=== PATIENT | female | born 1970 | race Caucasian/White ===

== ENCOUNTER 2021-01-25 18:41 | Emergency (ER) | payer BC ==
[2021-01-25 19:00] VITALS: BP 136/108
--- NOTE | 2021-01-25 19:23 | ED Physician Documentation ---
History of Present Illness - Stated complaint Stated Complaint: FALL, RIGHT FOOT INJURY - Chief complaint Chief Complaint: Trauma Ext - History obtained from History obtained from: Patient - Additonal information Additional information: Adal presents with right foot pain after getting out of an airplane and stumbling on her right foot. She states she is not able to bear any weight and there is diffuse pain throughout the entire foot but not the ankle. This happened several hours ago and there has been no improvement. She not had any swelling, no bruising, no erythema. She has not attempted any medication or other treatment at home. Review of Systems Ten Systems: 10 systems reviewed and negative Musculoskeletal: reports: Extremity pain, Pain with weight bearing. denies: Neck pain, Back pain, Joint pain, Extremity swelling, Joint swelling PD PAST MEDICAL HISTORY - Past Medical History Past Medical History: Yes Respiratory: Asthma Psych: Anxiety - Allergies Allergies/Adverse Reactions: Allergies Allergy/AdvReac Type Severity Reaction Status Date / Time escitalopram [From Lexapro] Allergy Nausea Verified 01/25/21 18:55 Iodinated Contrast Media Allergy Emesis Verified 01/25/21 18:55 PD ED PE NORMAL - Vitals Vital signs reviewed: Yes - General General: Alert and oriented X 3, No acute distress, Well developed/nourished - HEENT HEENT: Atraumatic, Moist mucous membranes - Cardiac Cardiac: RRR, No murmur - Respiratory Respiratory: No respiratory distress, Clear bilaterally - Abdomen Abdomen: Normal bowel sounds, Soft, Non tender, Non distended - Derm Derm: Normal color, Warm and dry, No rash - Extremities Extremities: No deformity, No edema, No calf tenderness / cord, Other (Is diffuse tenderness of the right foot primarily forefoot, base of fifth metatarsal and base of first metatarsal. There is no obvious deformity, no swelling, there is no pain of the malleoli and no swelling or instability of the ankle.). No: No tenderness to palpate, Normal ROM s pain - Neuro Neuro: Alert and oriented X 3, No motor deficit, No sensory deficit, Normal speech Eye Opening: Spontaneous Motor: Obeys Commands Verbal: Oriented GCS Score: 15 - Psych Psych: Normal mood, Normal affect Results - Vitals Vitals: Vital Signs - 24 hr 01/25/21 01/25/21 18:56 20:25 Temperature 36.6 C Heart Rate 89 89 Respiratory 18 18 Rate Blood Pressure 136/108 H 136/108 H O2 Saturation 98 98 Oxygen O2 Source Room air PD MEDICAL DECISION MAKING - ED course Complexity details: reviewed results, d/w patient ED course: 50 year-old female who presents with rt foot pain after injury. We obtained a x-ray which was reassuring without any acute fractures noted. On physical exam there is no obvious swelling, no erythema but she does have generalized tenderness. We placed her in a walking boot as she was unable to tolerate crutches. She was able to bear weight in this manner. Advised to keep elevated, utilize cool compress, ibu/tylenol. If no improvement in 1-2 weeks, pt to see PCP for possible additional imaging. Departure - Departure Disposition: 01 Home, Self Care Clinical Impression: Injury of foot Qualifiers: Encounter type: initial encounter Laterality: right Qualified Code(s): S99.921A - Unspecified injury of right foot, initial encounter Condition: Good Instructions: ED Sprain Foot Comments: You presented with right foot pain after stepping awkwardly. We obtain x-ray which was reassuring there are no signs of fracture. You likely have a sprain. You may use cool compress, rest, ibuprofen or Tylenol for pain. If you have ongoing pain after 1 to 2 weeks, follow-up with your primary doctor for additional imaging. Discharge Date/Time: 01/25/21 20:25
--- NOTE | 2021-01-25 19:44 | XRAY Report ---
PROCEDURE: Foot 3 View RT INDICATIONS: pain after fall, 5th met and midfoot TECHNIQUE: 3 views of the foot were acquired. COMPARISON: None FINDINGS: Bones: No fractures or dislocations. No suspicious bony lesions. Soft tissues: No tibiotalar joint effusion. Achilles tendon appears normal. IMPRESSION: No evidence acute bony abnormality of the right foot. If clinical suspicion and/or symptoms persist, further assessment with repeat plain films or advanced imaging (e.g., CT, MRI, or bone scan) may be helpful for further assessment. Reviewed by: Omer Connor MD on 01/25/2021 7:42 PM PDT Approved by: Omer Connor MD on 01/25/2021 7:42 PM PDT Station ID: [id number]
== END 2021-01-25 20:25 | disposition home or self-care (01) ==
LOC: ED 18:41
DX: S99.921A Unspecified injury of right foot, initial encounter (principal); X50.1XXA Overexertion from prolonged static or awkward postures, initial encounter; Y93.01 Activity, walking, marching and hiking; Y92.520 Airport as the place of occurrence of the external cause
CPT/HCPCS: 99282; 99283